=== PATIENT | male | born 1980 | race Caucasian/White ===

== ENCOUNTER 2019-04-22 12:14 | Emergency (ER) | payer MEDICARE, MEDICAID ==
[~2019-04-22] VITALS: Ht 185.4 cm; Wt 113.9 kg
[2019-04-22] MEDS ORDERED: HYDROcodone-ACET 10/325MG TAB PO ONE (13:15)
[2019-04-22 15:11] VITALS: BP 138/88
== END 2019-04-22 15:41 | disposition home or self-care (01) ==
LOC: ER 12:23
DX: S82.402A Unspecified fracture of shaft of left fibula, initial encounter for closed fracture (principal); I10 Essential (primary) hypertension; Y04.0XXA Assault by unarmed brawl or fight, initial encounter; Y93.89 Activity, other specified; Y92.89 Other specified places as the place of occurrence of the external cause; Y99.8 Other external cause status
CPT/HCPCS: 29515